=== PATIENT | female | born 1990 | race Caucasian/White ===

== ENCOUNTER 2019-09-23 21:02 | Emergency (ER) | payer MEDICAID, SELFPAY ==
[2019-09-23 22:34] VITALS: BP 96/60; PULSE 94; RESP 18; TEMP 37.1; O2SAT 100; BMI 31.6
[2019-09-24 00:54] VITALS: BP 126/63; PULSE 84; RESP 18; O2SAT 97
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
[2019-09-24 03:06] VITALS: BP 103/56; PULSE 77; RESP 18; O2SAT 98
[2019-09-24 05:16] VITALS: BP 117/75; PULSE 68; RESP 17
== END 2019-09-24 05:17 | disposition home or self-care (01) ==
PROVIDERS: Emergency Provider Emergency Medicine; PCP Obstetrics & Gynecology
DX: S09.8XXA Other specified injuries of head, initial encounter (principal); V86.69XA Passenger of other special all-terrain or other off-road motor vehicle injured in nontraffic accident, initial encounter; F17.210 Nicotine dependence, cigarettes, uncomplicated
CPT/HCPCS: 12345; 70450; 99282

== ENCOUNTER → 2019-10-19 07:58 | Outpatient (BNVA) | payer MEDICAID, SELFPAY | PROVIDERS: PCP Obstetrics & Gynecology; Visit Provider Psychiatry & Neurology Psychiatry | DX: F41.1 Generalized anxiety disorder (principal); F33.2 Major depressive disorder, recurrent severe without psychotic features; F43.12 Post-traumatic stress disorder, chronic; F41.0 Panic disorder [episodic paroxysmal anxiety]; F15.21 Other stimulant dependence, in remission; F11.21 Opioid dependence, in remission | CPT/HCPCS: 99213 ==